=== PATIENT | male | born 1955 | race Caucasian/White ===

== ENCOUNTER 2021-03-01 12:47 | Day surgery (SDC) | payer MEDICARE, OTHER ==
[2021-03-01] MEDS: Polymyxin B/Trimethoprim 10 ML Bottle EYERT SCH ×4 (13:05→15:03)
[2021-03-01] MEDS: Brimonidine 0.2% Ophth Soln 5 ML Bottle EYERT SCH ×4 (13:10→15:03)
[2021-03-01] MEDS: Phenylephrine 2.5% Ophth Soln 2 ML Bot EYERT SCH ×6 (13:15→14:45)
[2021-03-01] MEDS: Tropicamide 1% Ophth Soln 15 ML Bottle EYERT SCH ×4 (13:23→14:18)
--- NOTE | 2021-03-01 13:50 | PCM.PREANE ---
Preanesthetic Assessment - Procedure Proposed Procedure: cataract right - Anesthesia/Transfusion/Family Hx Anesthesia History: Prior Anesthesia Without Reaction Family History of Anesthesia Reaction: No Transfusion History: No Prior Transfusion(s) - Review of Systems General: No Symptoms Pulmonary: No Symptoms Cardiovascular: No Symptoms Gastrointestinal: No Symptoms Neurological: No Symptoms Other: Reports: None, Throat Pain (no pain just can't swallow- chemo in august and surgery in november) - Physical Assessment NPO Status Date: 02/28/21 NPO Status Time: 19:00 Vital Signs: 107/70 56 95% 16 Height: 5 ft 10 in Weight: 75.296 kg ASA Class: 2 Mental Status: Alert & Oriented x3 Airway Class: Mallampati = 1 Dentition: Reports: Broken Tooth/Teeth Thyro-Mental Finger Breadths: 3 Mouth Opening Finger Breadths: 3 Lungs: Clear to Auscultation, Normal Respiratory Effort Cardiovascular: Regular Rate, Regular Rhythm - Allergies Allergies/Adverse Reactions: Allergies Allergy/AdvReac Type Severity Reaction Status Date / Time Penicillins Allergy Cannot Verified 02/28/21 10:56 Remember - Blood Blood Available: No - Acknowledgements Anesthesia Type Planned: MAC Pt an Appropriate Candidate for the Planned Anesthesia: Yes Alternatives and Risks of Anesthesia Discussed w Pt/Guardian: Yes Pt/Guardian Understands and Agrees with Anesthesia Plan: Yes PreAnesthesia Questionnaire HEENT History: Reports: Other (See Below) (esophagus cancer) Cardiovascular History: Reports: None Respiratory History: Reports: None Gastrointestinal History: Reports: Other (See Below) (esophageal cancer) Musculoskeletal History: Reports: Arthritis Oncologic (Cancer) History: Reports: Esophageal - Past Surgical History HEENT Surgical History: Reports: Other (See Below) (esophagus cancer- removed.november 2020) GI Surgical History: Reports: Colonoscopy, EGD (and dilitation) - SUBSTANCE USE Tobacco Use Status *Q: Current Every Day Tobacco User Tobacco Use Within Last Twelve Months: Cigarettes (quit 1.5 years ago) Second Hand Smoke Exposure: Yes Days Per Week of Alcohol Use: 6 Number of Drinks Per Day: 6 Total Drinks Per Week: 36 Recreational Drug Use History: Yes Recreational Drug Type: Reports: Marijuana/Hashish - HOME MEDS Home Medications: Home Meds Carboxymethylcellulose Sodium [Artificial Tears] 1 drop EYEBOTH ASDIRECTED PRN 02/28/21 [History] - CURRENT (IN HOUSE) MEDS Current Meds: Current Medications Brimonidine Tartrate (Brimonidine 0.2% Ophth Soln 5 Ml Bottle) 0 ml EYERT ASDIRECTED [facility] Stop: 03/01/21 18:00 Last Admin: 03/01/21 13:10 Dose: 1 drop Documented by: Cefuroxime Sodium (Cefuroxime 10 Mg/Ml Syringe) 0 mg EYERT ASDIRECTED [facility] Stop: 03/01/21 18:00 Lidocaine HCl (Lidocaine 1% Pf 2 Ml Sdv) 0 ml INJECT ASDIRECTED [facility] Stop: 03/01/21 18:00 Phenylephrine HCl (Phenylephrine 2.5% Ophth Soln 2 Ml Bot) 0 ml EYERT ASDIRECTED [facility] Stop: 03/01/21 18:00 Last Admin: 03/01/21 13:39 Dose: 1 drop Documented by: Pilocarpine HCl (Pilocarpine 4% Ophth Soln 15 Ml Bot) 0 ml EYERT ASDIRECTED [facility] Stop: 03/01/21 18:00 Polymyxin/Trimethoprim Sulfate (Polymyxin B/Trimethoprim 10 Ml Bottle) 0 ml EYERT ASDIRECTED [facility] Stop: 03/01/21 18:00 Last Admin: 03/01/21 13:05 Dose: 1 drop Documented by: Tetracaine HCl (Tetracaine Hcl/Pf 0.5% 4 Ml Bottle) 0 ml EYEBOTH ASDIRECTED [facility] Stop: 03/01/21 18:00 Tropicamide (Tropicamide 1% Ophth Soln 15 Ml Bottle) 0 ml EYERT ASDIRECTED [facility] Stop: 03/01/21 18:00 Last Admin: 03/01/21 13:34 Dose: 1 drop Documented by:
[2021-03-01] MEDS: Tetracaine HCl/PF 0.5% 4 ML Bottle EYEBOTH SCH ×5 (14:24→14:52)
[2021-03-01] MEDS: Cefuroxime 10 MG/ML SYRINGE EYERT SCH ×2 (14:33→15:02)
[2021-03-01] MEDS: Lidocaine 1% PF 2 ML SDV INJECT SCH ×2 (14:33→14:53)
[2021-03-01] MEDS: Pilocarpine 4% Ophth Soln 15 ML Bot EYERT SCH ×2 (14:33→15:03)
--- NOTE | 2021-03-01 15:03 | PCM48HPAN ---
Post Anesthesia Note - EVALUATION WITHIN 48HRS OF ANESTHETIC Vital Signs in Normal Range: Yes Patient Participated in Evaluation: Yes Respiratory Function Stable: Yes Airway Patent: Yes Cardiovascular Function Stable: Yes Hydration Status Stable: Yes Pain Control Satisfactory: Yes Nausea and Vomiting Control Satisfactory: Yes Mental Status Recovered: Yes Vital Signs: Last Vital Signs Temp 36.4 C 03/01/21 12:45 Pulse 56 L 03/01/21 12:45 Resp 16 03/01/21 12:45 BP 107/70 03/01/21 12:45 Pulse Ox 95 03/01/21 12:45
== END 2021-03-01 15:18 | disposition home or self-care (01) ==
LOC: JD.SDS 12:47
PROVIDERS: ATTEND Ophthalmology
DX: H25.813 Combined forms of age-related cataract, bilateral (principal); F17.210 Nicotine dependence, cigarettes, uncomplicated
CPT/HCPCS: 66984; J0697; V2632

== ENCOUNTER 2021-03-29 07:32 | Day surgery (SDC) | payer MEDICARE, OTHER ==
[~2021-03-29 07:32] MED LIST: Cefuroxime 10 MG/ML SYRINGE EYELF SCH; Lidocaine 1% PF 2 ML SDV INJECT SCH; Pilocarpine 4% Ophth Soln 15 ML Bot EYELF SCH
--- NOTE | 2021-03-29 07:46 | PCM.PREANE ---
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) Neurological: No Symptoms Other: Reports: None - Physical Assessment NPO Status Date: 03/28/21 NPO Status Time: 19:00 Height: 1.78 m Weight: 73.028 kg ASA Class: 2 Mental Status: Alert & Oriented x3 Airway Class: Mallampati = 2 Dentition: Reports: Normal Dentition, Broken Tooth/Teeth (3 broken teeth) Thyro-Mental Finger Breadths: 3 Mouth Opening Finger Breadths: 3 ROM/Head Extension: Full Lungs: Clear to Auscultation, Normal Respiratory Effort Cardiovascular: Regular Rate, Regular Rhythm - Allergies Allergies/Adverse Reactions: Allergies Allergy/AdvReac Type Severity Reaction Status Date / Time Penicillins Allergy Cannot Verified 03/28/21 10:25 Remember - Blood Blood Available: No Product(s) Available: None - Anesthesia Plan Pre-Op Medication Ordered: None - Acknowledgements Anesthesia Type Planned: MAC Pt an Appropriate Candidate for the Planned Anesthesia: Yes Alternatives and Risks of Anesthesia Discussed w Pt/Guardian: Yes Pt/Guardian Understands and Agrees with Anesthesia Plan: Yes PreAnesthesia Questionnaire HEENT History: Reports: Other (See Below) (esophagus cancer) Cardiovascular History: Reports: None Respiratory History: Reports: None Gastrointestinal History: Reports: Other (See Below) (esophageal cancer) Musculoskeletal History: Reports: Arthritis Oncologic (Cancer) History: Reports: Esophageal - Past Surgical History HEENT Surgical History: Reports: Other (See Below) (esophagus cancer- removed.november 2020) GI Surgical History: Reports: Colonoscopy, EGD (and dilitation) - SUBSTANCE USE Tobacco Use Status *Q: Current Every Day Tobacco User Tobacco Use Within Last Twelve Months: Other (See Below) Other Tobacco Use Within Last Twelve Months: Marijuana Days Per Week of Alcohol Use: 7 Recreational Drug Use History: Yes Recreational Drug Type: Reports: Marijuana/Hashish - HOME MEDS Home Medications: Home Meds . [No Known Home Meds] 03/28/21 [History] - CURRENT (IN HOUSE) MEDS Current Meds: Current Medications Brimonidine Tartrate (Brimonidine 0.2% Ophth Soln 5 Ml Bottle) 0 ml EYELF ASDIRECTED [facility] Stop: 03/29/21 16:00 Cefuroxime Sodium (Cefuroxime 10 Mg/Ml Syringe) 0 mg EYELF ASDIRECTED [facility] Stop: 03/29/21 16:00 Lidocaine HCl (Lidocaine 1% Pf 2 Ml Sdv) 0 ml INJECT ASDIRECTED [facility] Stop: 03/29/21 16:00 Phenylephrine HCl (Phenylephrine 2.5% Ophth Soln 2 Ml Bot) 0 ml EYELF ASDIRECTED [facility] Stop: 03/29/21 16:00 Pilocarpine HCl (Pilocarpine 4% Ophth Soln 15 Ml Bot) 0 ml EYELF ASDIRECTED [facility] Stop: 03/29/21 16:00 Polymyxin/Trimethoprim Sulfate (Polymyxin B/Trimethoprim 10 Ml Bottle) 0 ml EYELF ASDIRECTED [facility] Stop: 03/29/21 16:00 Tetracaine HCl (Tetracaine Hcl/Pf 0.5% 4 Ml Bottle) 0 ml EYEBOTH ASDIRECTED [facility] Stop: 03/29/21 16:00 Tropicamide (Tropicamide 1% Ophth Soln 15 Ml Bottle) 0 ml EYELF ASDIRECTED [facility] Stop: 03/29/21 16:00
[2021-03-29] MEDS: Polymyxin B/Trimethoprim 10 ML Bottle EYELF SCH ×3 (08:21→09:56)
[2021-03-29] MEDS: Tetracaine HCl/PF 0.5% 4 ML Bottle EYEBOTH SCH ×5 (08:24→09:40)
[2021-03-29] MEDS: Brimonidine 0.2% Ophth Soln 5 ML Bottle EYELF SCH ×3 (08:25→09:56)
[2021-03-29] MEDS: Phenylephrine 2.5% Ophth Soln 2 ML Bot EYELF SCH ×5 (08:29→09:34)
[2021-03-29] MEDS: Tropicamide 1% Ophth Soln 15 ML Bottle EYELF SCH ×4 (08:33→09:09)
--- NOTE | 2021-03-29 09:57 | PCM48HPAN ---
Post Anesthesia Note - EVALUATION WITHIN 48HRS OF ANESTHETIC Vital Signs in Normal Range: Yes Patient Participated in Evaluation: Yes Respiratory Function Stable: Yes Airway Patent: Yes Cardiovascular Function Stable: Yes Hydration Status Stable: Yes Pain Control Satisfactory: Yes Nausea and Vomiting Control Satisfactory: Yes Mental Status Recovered: Yes Vital Signs: Last Vital Signs Temp 36.8 C 03/29/21 07:27 Pulse 58 L 03/29/21 07:27 Resp 17 03/29/21 07:27 BP 125/92 H 03/29/21 07:27 Pulse Ox 99 03/29/21 07:27
== END 2021-03-29 10:07 | disposition home or self-care (01) ==
LOC: JD.SDS 07:32
PROVIDERS: ATTEND Ophthalmology
DX: H25.812 Combined forms of age-related cataract, left eye (principal); H52.31 Anisometropia; H40.053 Ocular hypertension, bilateral; F17.200 Nicotine dependence, unspecified, uncomplicated; Z98.890 Other specified postprocedural states; Z96.1 Presence of intraocular lens; Z88.0 Allergy status to penicillin
CPT/HCPCS: 66984; J0697; V2632